=== PATIENT | male | born 2000 | race Caucasian/White ===

== ENCOUNTER 2020-05-14 20:57 | Observation (INO) ==
[2020-05-14] MEDS ORDERED: ONDANSETRON INJ 2 MG/ML 2 ML VIAL IV STA (21:15)
[2020-05-14] MEDS ORDERED: SODIUM CHLORIDE 0.9% 1000ML 1,000 ML IV SCH (21:15)
[2020-05-14 21:46] LABS: Basophils # (auto) 0.05 K/uL (0-0.2); Basophils % (auto) 0.4 %; Eosinophils % (auto) 0.7 %; Hematocrit (blood only) 44.7 % (42-52); Hemoglobin 15.2 g/dL (14.0-18.0); Immature Granulocytes # (auto) 0.03 K/uL (0.00-0.02); Immature Granulocytes % (auto) 0.2 %; Lymphocytes # (auto) 3.14 K/uL (1.2-3.4); Lymphocytes % (auto) 22.2 %; Mean Corpuscular Hemoglobin 29.7 pg (25-34); Mean Corpuscular Volume 87.5 fL (80-100); Mean Platelet Volume 10.6 fL (7.4-10.4); Monocytes % (auto) 9.2 %; Neutrophils # (auto) 9.52 K/uL (1.4-6.5); Neutrophils % (auto) 67.3 %; Platelet Count 200 K/uL (130-400); RDW Coefficient of Variation 12.4 % (11.5-14.5); RDW Standard Deviation 40.2 fL (36.4-46.3); Red Blood Count 5.11 M/uL (4.7-6.1); White Blood Count 14.14 K/uL (4.8-10.8)
[2020-05-14 22:17] LABS: Albumin Level 4.3 gm/dl (3.4-5.0); BUN Creatinine Ratio 12.1 (10-20); Calcium 9.5 mg/dl (8.5-10.1); Est GFR (African American) 115.2; Est GFR (Non-African American) 99.4; Globulin 4.1 gm/dl (2.5-4.0); Potassium 3.6 mmol/L (3.5-5.1); Total Protein 8.5 gm/dl (6.4-8.2)
--- NOTE | 2020-05-14 22:18 | Emergency Department Note ---
History of Present Illness General Chief Complaint: Abdominal Pain Stated Complaint: ABD PAIN Time Seen by Provider: 05/14/20 21:03 Source: patient Mode of arrival: ambulatory Limitations: no limitations History of Present Illness Provider Complaint: abdominal pain Onset (ago): 1 day(s) Pain Consistency: constant Location: periumbilical Radiation: RLQ Migration to: RLQ Severity: moderate Maximum Pain Intensity: 7 Current Pain Intensity: 7 Quality: + stabbing and + sharp Relieved By: + nothing Exacerbated By: + eating, + movement and + other (ambulation) Associated Symptoms: + nausea, + vomiting and + anorexia Treatments prior to arrival: antacids This 19-year-old male patient with no significant past medical history presents to the emergency department today for evaluation of abdominal pain. The patient states at 10 PM last evening, he developed periumbilical abdominal pain which has been progressively worsening overnight. He did have an episode of nausea and vomiting at 3 or 4 AM and was having difficulty sleeping due to the pain overnight. He has been taking Tums and Pepto-Bismol without relief. He denies any associated fever or diarrhea. Last bowel movement was earlier today and was normal. The patient states his pain has progressively worsened and migrated to the right lower quadrant and is worse with walking or coughing. He denies a history of fever. He denies any diarrhea or constipation. Patient last ate cereal 1 hour prior to arrival, but has had a decreased appetite throughout the day. He denies any hematemesis or hematochezia. No melena. Patient denies any history of similar symptoms. Home Medications Home Medications Medication Instructions Recorded Confirmed Type calcium carbonate [Tums] 400 mg PO BID PRN 05/14/20 05/14/20 History Allergies Allergy/AdvReac Type Severity Reaction Status Date / Time peanut Allergy Severe Anaphylaxis Verified 05/14/20 22:18 tree nut Allergy Severe Anaphylaxis Verified 05/14/20 22:18 Past Med/Surg History Medical History No pertinent past medical history Social History Smoking Status: Never smoker Feels Safe at Home: Yes Review of Systems A total of 10 systems reviewed and were otherwise negative Physical Exam Vital Signs: Vital Signs - 24 hr 05/14/20 20:58 05/14/20 22:14 Temperature 37.1 C Temperature Source Oral Pulse Rate 107 H Pulse Rate [Finger ] 92 H Pulse Rhythm [Fing er] Regular Respiratory Rate 18 20 Respiratory Effort / Characteristics Non-Labored Respiratory Depth Normal Blood Pressure 151/91 H Blood Pressure [Le ft Arm] 119/91 Blood Pressure Sarah n 111 Blood Pressure Sarah n [Left Arm] 100 Blood Pressure Pos ition Sitting Pulse Oximetry 97 100 Oxygen Delivery Me thod Room Air Room Air Sepsis Recent Feve r Within 48 Hours No Sepsis New/Unexpla ined Change in Men priyanka Status No Sepsis Action Take n by Nursing No Action Required Physical Exam: VITALS: Vitals are noted on the nurse's note and reviewed by myself. Patient is hypertensive and tachycardic. He is afebrile. O2 saturation 97% GENERAL: This is a 19-year-old white male, in no acute distress, nondiaphoretic, well-developed well-nourished. SKIN: The skin was without rashes, erythema, edema, or bruising. There is no tenting of the skin. Capillary refill less than 2 seconds. HEAD: Normocephalic atraumatic. EYES: Conjunctivae without injection, sclerae without icterus. NECK: Supple without nuchal rigidity. No lymphadenopathy. HEART: Regular rate and rhythm without murmurs gallops or rubs. LUNGS: Clear to auscultation bilaterally without wheezes, rales or rhonchi. No retractions or accessory muscle use. ABDOMEN: Positive bowel sounds x 4. Normal tympanic percussion. Periumbilical right lower quadrant tenderness to palpation. Positive rebound tenderness. No guarding. Abdomen otherwise soft, without masses or organomegaly. Tena sign negative. No CVA tenderness bilaterally. MUSCULOSKELETAL: No muscle atrophy, erythema, or edema noted. Full range of motion without joint tenderness in all extremities. No tenderness to palpation. Normal gait. Strength 5/5 throughout. NEURO: Patient was alert and oriented to person place and time. No focal neurological deficits. Course Course The patient was seen and evaluated as above. An order was placed for continuous cardiac monitoring. The monitor shows a NS tachycardia at a rate of 107 bpm. IV access obtained, labs drawn. Patient medicated with IV fluids and Zofran. Labs reviewed by myself. The patient was signed out at shift change to Praful Lind PA-C pending CT imaging and finalization of labs. Please see his dictation regarding final disposition and plan. Administered Medications Discontinued Medications Sodium Chloride (Nss 1000ml) 1,000 mls @ 999 mls/hr IV .[id number] YOUNG Stop: 05/14/20 22:15 Last Admin: 05/14/20 21:33 Dose: 999 mls/hr Documented by: [id number] Ondansetron HCl (Ondansetron Inj 2 Mg/Ml 2 Ml Vial) 4 mg IV NOW STA Stop: 05/14/20 21:16 Last Admin: 05/14/20 21:30 Dose: 4 mg Documented by: [id number] Medical Decision Making Differential Diagnosis + peptic ulcer disease, + biliary pathology, + UTI, + obstruction, + mesenteric ischemia, + aortic pathology, + infections, + inflammatory bowel disease, + renal colic, + torsion (male), + epididymitis (male), + abdominal pain, + appendicitis, + calculus of kidney, + constipation, + diverticulitis, + gastroenteritis, + pancreatitis and + small bowel obstruction Medical Records Attestation: I reviewed the patient's medical records. Home Medications Current Medication List: was personally reviewed by me Laboratory Data Attestation: I reviewed the patient's lab results. Leukocytosis of 14,000. No anemia or thrombocytopenia. Renal, hepatic function and electrolytes without significant abnormality. Lipase 100. Result diagrams: 05/14/20 21:25 05/14/20 21:25 Lab Results 05/14/20 05/14/20 Range/Units 21:25 21:25 WBC 14.14 H (4.8-10.8) K/uL RBC 5.11 (4.7-6.1) M/uL Hgb 15.2 (14.0-18.0) g/dL Hct 44.7 (42-52) % MCV 87.5 (80-100) fL MCH 29.7 (25-34) pg MCHC 34.0 (32-36) g/dL RDW Std Deviation 40.2 (36.4-46.3) fL RDW Coeff of Camilo 12.4 (11.5-14.5) % Plt Count 200 (130-400) K/uL MPV 10.6 H (7.4-10.4) fL Immature Gran % (Auto) 0.2 % Neut % (Auto) 67.3 % Lymph % (Auto) 22.2 % [place] % (Auto) 9.2 % Eos % (Auto) 0.7 % Baso % (Auto) 0.4 % Neut # (Auto) 9.52 H (1.4-6.5) K/uL Lymph # (Auto) 3.14 (1.2-3.4) K/uL [place] # (Auto) 1.30 H (0.11-0.59) K/uL Eos # (Auto) 0.10 (0-0.5) K/uL Baso # (Auto) 0.05 (0-0.2) K/uL Immature Gran # (Auto) 0.03 H (0.00-0.02) K/uL Sodium 138 (136-145) mmol/L Potassium 3.6 (3.5-5.1) mmol/L Chloride 104 (98-107) mmol/L Carbon Dioxide 29 (21-32) mmol/L Anion Gap 5.0 (3-11) BUN 13 (7-18) mg/dl Creatinine 1.07 (0.6-1.4) mg/dl Est Cr Clr Drug Dosing 103.0 ml/min Est GFR ( Amer) 115.2 Est GFR (Non-Af Amer) 99.4 BUN/Creatinine Ratio 12.1 (10-20) Glucose 113 H (70-99) mg/dl Calcium 9.5 (8.5-10.1) mg/dl Total Bilirubin 1.0 (0.2-1) mg/dl AST 14 L (15-37) U/L ALT 18 (12-78) U/L Alkaline Phosphatase 91 (45-117) U/L Total Protein 8.5 H (6.4-8.2) gm/dl Albumin 4.3 (3.4-5.0) gm/dl Globulin 4.1 H (2.5-4.0) gm/dl Albumin/Globulin Ratio 1.0 (0.9-2) Lipase 100 (73-393) U/L Specimen Hemolysis Blood Pressure Blood Pressure Findings: Elevated blood pressure Blood Pressure Disposition: elevated BP felt to be situational MDM Narrative This 19 year old male patient presents to the ED for evaluation of RLQ abdominal pain. Symptoms began last evening and are associated with nausea, vomiting, anorexia, and increased pain with walking and coughing. Patient is afebrile. He is tachycardic on initial evaluation, but very anxious regarding lab work. He does have a leukocytosis. Primary concern is for acute appendicitis. Patient is awaiting CT abdomen/pelvis at shift change, and will be signed out to Praful Lind PA-C pending reevaluation and results of CT imaging. Please see his dictation regarding final disposition and plan of this patient. The chart was completed utilizing [employer] Speech voice recognition software. Grammatical errors, random word insertions, pronoun errors, and incomplete sentences are an occasional consequence of this system due to software limitations, ambient noise, and hardware issues. Any formal questions or concerns about the content, text, or information contained within the body of this dictation should be directly addressed to the provider for clarification. Impression & Plan Abdominal pain Discharge Plan Visit Data Chief Complaint: Abdominal Pain Stated Complaint: ABD PAIN ED Provider: Je Toth ED Midlevel Provider: Sri Dumont Discharge Problem: Abdominal pain Patient Disposition: Still a Patient Forms Stand Alone Forms: [facility], [facility], [facility] Emergency Department, Important Visit Information Prescriptions Prescriptions: No Action calcium carbonate [Tums] 200 mg calcium (500 mg) Tablet,Chewable 400 mg PO BID PRN (Reason: abd discomfort) RF: 0 Referrals Referrals: PCP,NO [Primary Care Provider] -
[2020-05-14 22:38] LABS: Appearance Urine Clear (Clear); Bilirubin Urine Negative (Negative); Blood Urine Negative (Negative); Color Urine Yellow; Glucose Urine UA Negative (Negative); Ketones Urine Negative (Negative); Leukocyte Esterase Urine Negative (Negative); Nitrite Urine Negative (Negative); Protein Urine Negative (Negative); Specific Gravity Urine 1.011 (1.000-1.030); Urobilinogen Urine Negative (Negative)
--- NOTE | 2020-05-14 23:10 | Emergency Department Note ---
Impression & Plan Abdominal pain ED Provider Note Patient care was assumed from Sri Dumont PA-C, at the time of shift change. Please see Tim's dictation for full history of present illness and emergency department course prior to my assumption of care. In short, the patient has right lower quadrant abdominal pain. He does have an elevated white blood cell count. At the time of shift change we are awaiting CT scan with IV and oral contrast. CT Scan was reviewed by myself and radiology as follows: Preliminary Findings Only See Final Report For Complete Findings CT ABDOMEN & PELVIS With Contrast: Uncomplicated acute appendicitis. Thick-walled, inflamed appendix measures 9 mm in diameter. No free air or abscess. Liver, gallbladder, spleen, pancreas, adrenal glands are unremarkable. No hydronephrosis. Right kidney cyst. No bowel obstruction. Urinary bladder and prostate are normal. No acute osseous findings. The patient appears to have acute appendicitis on CT. These findings were discussed with the patient. I did discuss the case with the on-call surgical team, Agustín Rosas PA-C, who did evaluate the patient here in the department. The patient did have a rapid Covid performed, which was negative. He was given Mefoxin. Please see the surgical team's dictation for further patient course, plan, and disposition. Past Med/Surg History Medical History No pertinent past medical history Social History Smoking Status: Never smoker Do You Dip or Chew Tobacco: No; Hx Alcohol Use: No Hx Substance Use: No Preferred Language: Setswana Communication Ability: Effective Beliefs That Will Affect Care: None Current Living Situation: Alone Feels Safe at Home: Yes Assistive Devices: None Allergies Allergies Allergy/AdvReac Type Severity Reaction Status Date / Time peanut Allergy Severe Anaphylaxis Verified 05/14/20 22:18 tree nut Allergy Severe Anaphylaxis Verified 05/14/20 22:18 Home Meds Home Medications Medication Instructions Recorded Confirmed calcium carbonate [Tums] 400 mg PO BID PRN 05/14/20 05/14/20 Results & Data (ED) Vital Signs Vital Signs - 24 hr 05/14/20 20:58 05/14/20 22:14 05/14/20 23:00 Temperature 37.1 C Temperature Source Oral Pulse Rate 107 H Pulse Rate [Finger] 92 H 79 Pulse Rhythm [Finger] Regular Respiratory Rate 18 20 18 Respiratory Effort / Characteristics Non-Labored Respiratory Depth Normal Blood Pressure 151/91 H Blood Pressure [Left Arm] 119/91 125/76 Blood Pressure Mean 111 Blood Pressure Mean [Left Arm] 100 92 Blood Pressure Position Sitting Pulse Oximetry 97 100 98 Oxygen Delivery Method Room Air Room Air Room Air Sepsis Recent Fever Within 48 Hours No Sepsis New/Unexplained Change in Mental Status No Sepsis Action Taken by Nursing No Action Required Laboratory Data Result diagrams: 05/14/20 21:25 05/14/20 21:25 Lab Results 05/14/20 05/14/20 05/14/20 Range/Units 21:25 21:25 21:25 WBC 14.14 H (4.8-10.8) K/uL RBC 5.11 (4.7-6.1) M/uL Hgb 15.2 (14.0-18.0) g/dL Hct 44.7 (42-52) % MCV 87.5 (80-100) fL MCH 29.7 (25-34) pg MCHC 34.0 (32-36) g/dL RDW Std Deviation 40.2 (36.4-46.3) fL RDW Coeff of Camilo 12.4 (11.5-14.5) % Plt Count 200 (130-400) K/uL MPV 10.6 H (7.4-10.4) fL Immature Gran % (Auto) 0.2 % Neut % (Auto) 67.3 % Lymph % (Auto) 22.2 % [place] % (Auto) 9.2 % Eos % (Auto) 0.7 % Baso % (Auto) 0.4 % Neut # (Auto) 9.52 H (1.4-6.5) K/uL Lymph # (Auto) 3.14 (1.2-3.4) K/uL [place] # (Auto) 1.30 H (0.11-0.59) K/uL Eos # (Auto) 0.10 (0-0.5) K/uL Baso # (Auto) 0.05 (0-0.2) K/uL Immature Gran # (Auto) 0.03 H (0.00-0.02) K/uL Sodium 138 (136-145) mmol/L Potassium 3.6 (3.5-5.1) mmol/L Chloride 104 (98-107) mmol/L Carbon Dioxide 29 (21-32) mmol/L Anion Gap 5.0 (3-11) BUN 13 (7-18) mg/dl Creatinine 1.07 (0.6-1.4) mg/dl Est Cr Clr Drug Dosing 103.0 ml/min Est GFR ( Amer) 115.2 Est GFR (Non-Af Amer) 99.4 BUN/Creatinine Ratio 12.1 (10-20) Glucose 113 H (70-99) mg/dl Calcium 9.5 (8.5-10.1) mg/dl Total Bilirubin 1.0 (0.2-1) mg/dl AST 14 L (15-37) U/L ALT 18 (12-78) U/L Alkaline Phosphatase 91 (45-117) U/L Total Protein 8.5 H (6.4-8.2) gm/dl Albumin 4.3 (3.4-5.0) gm/dl Globulin 4.1 H (2.5-4.0) gm/dl Albumin/Globulin Ratio 1.0 (0.9-2) Lipase 100 (73-393) U/L Specimen Hemolysis Urine Color Yellow Urine Appearance Clear (Clear) Urine pH 7.0 (4.5-7.5) Ur Specific [place] 1.011 (1.000-1.030) Urine Protein Negative (Negative) Urine Glucose (UA) Negative (Negative) Urine Ketones Negative (Negative) Urine Blood Negative (Negative) Urine Nitrite Negative (Negative) Urine Bilirubin Negative (Negative) Urine Urobilinogen Negative (Negative) Ur Leukocyte Esterase Negative (Negative) COVID-19 Eval Order SARS-CoV-2, RNA, NAAT (NEGATIVE) 05/15/20 05/15/20 Range/Units 00:25 00:25 WBC (4.8-10.8) K/uL RBC (4.7-6.1) M/uL Hgb (14.0-18.0) g/dL Hct (42-52) % MCV (80-100) fL MCH (25-34) pg MCHC (32-36) g/dL RDW Std Deviation (36.4-46.3) fL RDW Coeff of Camilo (11.5-14.5) % Plt Count (130-400) K/uL MPV (7.4-10.4) fL Immature Gran % (Auto) % Neut % (Auto) % Lymph % (Auto) % [place] % (Auto) % Eos % (Auto) % Baso % (Auto) % Neut # (Auto) (1.4-6.5) K/uL Lymph # (Auto) (1.2-3.4) K/uL [place] # (Auto) (0.11-0.59) K/uL Eos # (Auto) (0-0.5) K/uL Baso # (Auto) (0-0.2) K/uL Immature Gran # (Auto) (0.00-0.02) K/uL Sodium (136-145) mmol/L Potassium (3.5-5.1) mmol/L Chloride (98-107) mmol/L Carbon Dioxide (21-32) mmol/L Anion Gap (3-11) BUN (7-18) mg/dl Creatinine (0.6-1.4) mg/dl Est Cr Clr Drug Dosing ml/min Est GFR ( Amer) Est GFR (Non-Af Amer) BUN/Creatinine Ratio (10-20) Glucose (70-99) mg/dl Calcium (8.5-10.1) mg/dl Total Bilirubin (0.2-1) mg/dl AST (15-37) U/L ALT (12-78) U/L Alkaline Phosphatase (45-117) U/L Total Protein (6.4-8.2) gm/dl Albumin (3.4-5.0) gm/dl Globulin (2.5-4.0) gm/dl Albumin/Globulin Ratio (0.9-2) Lipase (73-393) U/L Specimen Hemolysis Urine Color Urine Appearance (Clear) Urine pH (4.5-7.5) Ur Specific [place] (1.000-1.030) Urine Protein (Negative) Urine Glucose (UA) (Negative) Urine Ketones (Negative) Urine Blood (Negative) Urine Nitrite (Negative) Urine Bilirubin (Negative) Urine Urobilinogen (Negative) Ur Leukocyte Esterase (Negative) COVID-19 Eval [facility] SARS-CoV-2, RNA, NAAT NEGATIVE (NEGATIVE) Administered Medications Lactated Ringer's (Lr) 1,000 mls @ 80 mls/hr IV .[id number] YOUNG Stop: 06/14/20 02:07 Last Admin: 05/15/20 02:27 Dose: 80 mls/hr Documented by: [id number] Discontinued Medications Sodium Chloride (Nss 1000ml) 1,000 mls @ 999 mls/hr IV .[id number] YOUNG Stop: 05/14/20 22:15 Last Infusion: 05/14/20 22:59 Dose: 0 mls/hr Documented by: [id number] Admin: 05/14/20 21:33 Dose: 999 mls/hr Documented by: [id number] Cefoxitin Sodium (Mefoxin) 2,000 mg in 60 mls @ 100 mls/hr IV NOW STA Stop: 05/15/20 00:55 Last Infusion: 05/15/20 01:07 Dose: 0 mls/hr Documented by: [id number] Admin: 05/15/20 00:31 Dose: 100 mls/hr Documented by: [id number] Ioversol (Ioversol 100ml) 100 ml IV ONCE ONE Stop: 05/15/20 00:08 Last Admin: 05/15/20 00:08 Dose: 93 ml Documented by: [id number] Ondansetron HCl (Ondansetron Inj 2 Mg/Ml 2 Ml Vial) 4 mg IV NOW STA Stop: 05/14/20 21:16 Last Admin: 05/14/20 21:30 Dose: 4 mg Documented by: [id number] Discharge Plan Visit Data Chief Complaint: Abdominal Pain Stated Complaint: ABD PAIN ED Provider: Je Toth ED Midlevel Provider: Praful Lind Discharge Problem: Abdominal pain Patient Disposition: Admitted As Inpatient Discharge Instructions Interventions: ED Discharge Assessment Last Done: 05/15/20 01:30 Discharge Problem: Abdominal pain Qualifiers: Abdominal location: right lower quadrant Qualified Code(s): R10.31 - Right lower quadrant pain
[2020-05-15] MEDS ORDERED: IOVERSOL 100ml IV ONE (00:07)
[2020-05-15] MEDS ORDERED: cefOXitin 2,000 MG/60 ML BAG IV STA (00:20)
--- NOTE | 2020-05-15 00:51 | History & Physical Report ---
Date of Service May 15, 2020 Assessment & Plan (1) Acute appendicitis: -will admit pt. 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 He had an episode of N/V. The pain has since shifted to the RLQ. He denies palliative factors. The pain is worse with palpation of the abdomen. He denies fevers. He lives alone in an apartment and to the best of his knowledge has no COVID-19 exposure. He has no cough, SOB, loss of sense of smell or taste. In the ED, CT scan showed acute appendicitis. WBC was 14k and he was afebrile. He was in no distress at the time of my exam. Allergies Allergy/AdvReac Type Severity Reaction Status Date / Time peanut Allergy Severe Anaphylaxis Verified 05/14/20 22:18 tree nut Allergy Severe Anaphylaxis Verified 05/14/20 22:18 Home Medications Home Medications Medication Instructions Recorded Confirmed Type calcium carbonate [Tums] 400 mg PO BID PRN 05/14/20 05/14/20 History Past Med/Surg History Medical History No pertinent past medical history Social History Smoking Status: Never smoker Do You Dip or Chew Tobacco: No; Hx Alcohol Use: No Hx Substance Use: No Preferred Language: Japanese Communication Ability: Effective Beliefs That Will Affect Care: None Current Living Situation: Alone Feels Safe at Home: Yes Assistive Devices: None Review of Systems Constitutional: no fever and no body aches Eyes: no diplopia Ear, Nose, Mouth, Throat: no ear pain Respiratory: no cough and no dyspnea Cardiovascular: no chest pain Gastrointestinal: + abdominal pain, + nausea and + vomiting Genitourinary: no dysuria Musculoskeletal: no back pain Integumentary: no rash Neurologic: no localized weakness Physical Exam Constitutional: well developed and well nourished; no acute distress Eyes: no conjunctival abnormality ENMT: Ears: no hearing impairment Neck: trachea midline Respiratory: normal respiratory effort, lungs clear to auscultation Cardiovascular: Rate/Rhythm: regular rate and regular rhythm Gastrointestinal (Abdomen): soft without distention, pain with palpation in RLQ with minor rebound tenderness Musculoskeletal: no calf pain Skin: no rashes, warm and dry Neurologic: moves all extremities Psychiatric: A+Ox3, euthymic affect Results & Data Results & Data ([facility]) Vital Signs (Past 12 Hours) Vital Signs Temp Pulse Pulse Resp BP BP Pulse Ox 05/14/20 23:00 79 18 125/76 98 05/14/20 22:14 92 H 20 119/91 100 05/14/20 20:58 37.1 C 107 H 18 151/91 H 97 Supervising Physician Co-Signing Physician Notes As per Agustín ALCAZAR The patient is resting comfortably using his iPhone Exam localized tenderness to right lower quadrant just inferior to McBurney's point rest of the abdomen is negative Lab was reviewed CAT scan was seen we will proceed with laparoscopic appendectomy possible open Risk and complication of the procedure were explained to the patient and talked to his mother by phone and would like to proceed accordingly Permit is signed PG Care Time/CCT Total # of Minutes Spent Total Time Spent with Patient: Total time spent is greater than 50% in coordination of care (as documented) at patient's floor/unit and/or counseling patient: Coding Level of Care Code 97193 OBS Care - Level 3 Diagnoses Acute appendicitis K35.80
[2020-05-15] MEDS ORDERED: ACETAMINOPHEN 1,000 MG/100 ML VIAL IV PRN (02:08)
[2020-05-15] MEDS ORDERED: MoRPHine SULFATE 2 MG/ML CARP IV PRN ×2 (02:08→07:51)
[2020-05-15] MEDS ORDERED: ONDANSETRON INJ 2 MG/ML 2 ML VIAL IV PRN ×2 (02:08→05:12)
[2020-05-15] MEDS: LACTATED RINGER'S 1,000 ML IV SCH ×2 (02:27→07:53)
[2020-05-15] MEDS ORDERED: INFLUENZA VIRUS QUAD VACCINE 0.5 ML SYR IM ONE (02:29)
[2020-05-15] MEDS ORDERED: INFLUENZA ADMINISTRATION CHARGE ONE (02:29)
[2020-05-15] MEDS ORDERED: LIDOCAINE/EPINEPHRINE 1% 20 ML VIAL ONE (05:09)
[2020-05-15] MEDS ORDERED: ePHEDrine sulfate 50 MG/ML AMP IV PRN (05:12)
[2020-05-15] MEDS ORDERED: PHENYLEPHRINE 100MCG/ML 5ML SYR IV PRN (05:12)
[2020-05-15] MEDS ORDERED: fentaNYL citrate 100 MCG/2 ML VIAL IV PRN (05:12)
[2020-05-15] MEDS ORDERED: MEPERIDINE HCL 25 MG/ML CARP/VIAL IV PRN (05:12)
[2020-05-15] MEDS ORDERED: LABETALOL HCL IV 5 MG/ML 20ML IV PRN (05:12)
[2020-05-15] MEDS ORDERED: HYDROmorphone INJ 1 MG/ML SYRINGE IV PRN (05:12)
[2020-05-15] MEDS ORDERED: ATROPINE SULFATE 0.1 MG/ML 10ML SYR IV PRN (05:12)
--- NOTE | 2020-05-15 05:24 | Anesthesiology Consultation ---
Date of Service May 15, 2020 Assessment & Plan (1) Encounter for pre-operative examination: Chart Review Chart Review: Acceptable Risk for Surgery and Patient NOT seen in Pre Admission Testing Consults Requested none History Surgery Operation Date: 05/15/20 05:30 Proposed Procedures p Laparoscopic Appendectomy - Bhaskar Kohli MD Height/Weight Height: 5 ft 10 in Weight: 66.5 kg Allergies Allergy/AdvReac Type Severity Reaction Status Date / Time peanut Allergy Severe Anaphylaxis Verified 05/14/20 22:18 tree nut Allergy Severe Anaphylaxis Verified 05/14/20 22:18 Medications Home Medications Medication Instructions Recorded Confirmed Last Taken calcium carbonate [Tums] 400 mg PO BID PRN 05/14/20 05/14/20 Unknown Active Medications Generic Name Dose Route Start Last Admin Trade Name Freq PRN Reason Stop Dose Admin Lactated Ringer's 1,000 mls @ 80 mls/hr 05/15/20 02:08 05/15/20 02:27 Lr IV 06/14/20 02:07 80 mls/hr .[id number] YOUNG Administration NPO Date Last Intake of Fluids: 05/14/20 Time Last Intake of Fluids: 23:59 Last Intake of Fluids Comment: contrast Date Last Intake of Solids: 05/14/20 Time Last Intake of Solids: 23:59 Past Medical History Medical History No pertinent past medical history Social History Smoking Status: Never smoker Do You Dip or Chew Tobacco: No Hx Alcohol Use: No Hx Substance Use: No Physical Exam Vital Signs Last Vital Signs Temp 37.6 C H 05/15/20 02:24 Pulse 75 05/15/20 02:24 Resp 16 05/15/20 02:24 BP 121/71 05/15/20 02:24 Pulse Ox 96 05/15/20 02:24 Testing Laboratory Results 05/14/20 21:25 05/14/20 21:25 Urine Color Yellow 05/14/20 21:25 Urine Appearance Clear (Clear) 05/14/20 21:25 Urine pH 7.0 (4.5-7.5) 05/14/20 21:25 Ur Specific [place] 1.011 (1.000-1.030) 05/14/20 21:25 Urine Protein Negative (Negative) 05/14/20 21:25 Urine Glucose (UA) Negative (Negative) 05/14/20 21:25 Urine Ketones Negative (Negative) 05/14/20 21:25 Urine Nitrite Negative (Negative) 05/14/20 21:25 Ur Leukocyte Esterase Negative (Negative) 05/14/20 21:25
[2020-05-15] MEDS ORDERED: MIDAZOLAM HCL 1 MG/ML 2ML VIAL ONE (05:31)
[2020-05-15] MEDS ORDERED: fentaNYL citrate 100 MCG/2 ML VIAL ONE (05:31)
[2020-05-15] MEDS: cefOXitin 2,000 MG in DEXTROSE 5% 50 ML IV SCH ×2 (05:43→13:09)
[2020-05-15] MEDS ORDERED: DEXAMETHASONE SOD INJ 4 MG/ML VIAL ONE (05:59)
[2020-05-15] MEDS ORDERED: PROPOFOL IV EMULSION 10 MG/ML 20 ML VIAL IV ONE (05:59)
[2020-05-15] MEDS ORDERED: ROCURONIUM BROMIDE 10 MG/ML 5 ML VIAL IV ONE ×4 (06:00→06:03)
[2020-05-15] MEDS ORDERED: LIDOCAINE HCL 2% 2 ML VIAL/AMP(20MG/ML) INFIL ONE (06:00)
[2020-05-15] MEDS ORDERED: SUCCINYLCHOLINE CHLORIDE 20 MG/ML 10 ML VIAL IV ONE (06:00)
[2020-05-15] MEDS ORDERED: ONDANSETRON INJ 2 MG/ML 2 ML VIAL ONE ×2 (06:00)
[2020-05-15] MEDS ORDERED: GLYCOPYRROLATE 0.2 MG/ML VIAL ONE (06:01)
[2020-05-15] MEDS ORDERED: NEOSTIGMINE METHYLSULFATE 5 MG/5 ML SYR ONE (06:01)
--- NOTE | 2020-05-15 06:42 | Post Operative Brief Note ---
PG Immediate Post Op with CF Date of Surgery May 15, 2020 Pre & Post Diagnosis Operation Date: 05/15/20 05:30 Pre-Op Diagnosis: Acute Appendix Post-Op Diagnosis: Acute Appendix I identified the patient and participated in the time-out.: Yes Procedure Operation Date: 05/15/20 05:30 Actual Procedures p Laparoscopic Appendectomy - Bhaskar Kohli MD Surgeon Bhaskar Kohli MD Nut Sifter nathe Estimated Blood Loss 5 Findings Consistent with Post-Op Diagnosis Specimens Specimen Description: A. Appendix
--- NOTE | 2020-05-15 06:52 | Operative Report ---
PG Post Operative Report Pre & Post Diagnosis Operation Date: 05/15/20 05:30 Pre-Op Diagnosis: Acute Appendix Post-Op Diagnosis: Acute Appendix I identified the patient and participated in the time-out.: Yes Procedure Operation Date: 05/15/20 05:30 Actual Procedures p Laparoscopic Appendectomy - Bhaskar Kohli MD The patient was brought into the operating theater supine position general trach anesthesia timeout was had for Covid protocol the abdomen is then prepped Betadine solution properly draped antibiotics had been on board patient i dentified timeout was had and incision was made approximately quarter of an inch long supraumbilically Veress needle followed followed by CO2 followed by 5 mm trocar point of interest back to no injury identified there was a little bit of blood along the omentum that eventually found that the trocar and gone through slightly on the falciform ligament but the bleeding eventually stopped and regularization we placed a 5 mm right upper quadrant port with preemptive analgesic camera was placed in that area we visualize the umbilical site and there was no active bleeding identified at this point we converted the 5 mm supraumbilical port by enlarging the incision removing the 5 mm using a Dede clamp to open up the fascia then on direct visualization placed a 11 mm trocar and a 5 mm trocar was then placed in the left lower quadrant direct visualization with preemptive local analgesic the camera was placed in that area and were able to elevate the cecum identify the appendix easily which was dilated inflamed nonruptured no fibrinous exudate but the tip was covered with slightly omentum which we peeled off without any difficulty and we created a window between the mesoappendix and the appendix at the base of the cecum and were able to fire a blue load stapler without any difficulty the staple line was intact no bleeding the mesoappendix was rather small as far as diameter therefore we placed another 5 mm load and freed the appendix from the mesoappendix the appendix was then placed in an Endopouch and taken out through the umbilical port 11 mm port was then replaced we identified that there was a slight bleeder in the mesoappendix at the tip we can actually see the pulsation transmitted in the fatty tissue therefore at this point I placed 210 mm clips in an area that I thought may have been the site of a little oozing and indeed it was we checked the area again multiple times there was no bleeding suction and this point individual trochars removed left first remove the left lower quadrant then the middle umbilical area the night last the 5 mm right upper quadrant trocar fascial stitch or 2-0 Vicryl [id number] was used to fashion around the umbilical area and 4-0 Monocryl subcuticular Steri-Strips applied procedure was tolerated well by the patient estimated blood loss 5 cc Surgeon Bhaskar Kohli MD [employer] Estimated Blood Loss 5 Findings Consistent with Post-Op Diagnosis Specimens appendix Description of Procedure harry I attest to the content of the Intraoperative Record and any orders documented therein. Any exceptions are noted below.
--- NOTE | 2020-05-15 07:07 | Anesthesiology Progress Note ---
Date of Service May 15, 2020 Anesthesia Post Procedure Vital Signs Vital Signs: Temp Pulse Pulse Resp BP BP Pulse Ox 05/15/20 06:53 36.6 C 72 21 125/66 100 05/15/20 02:24 37.6 C H 75 16 121/71 96 05/14/20 23:00 79 18 125/76 98 05/14/20 22:14 92 H 20 119/91 100 05/14/20 20:58 37.1 C 107 H 18 151/91 H 97 Pain Intensity Lower Abdomen: Pain Intensity: 2 Transfer of Care Handoff Completed per policy Notes Mental Status: alert / awake / arousable Patient Amnestic to Procedure: Yes Nausea / Vomiting: adequately controlled Pain: adequately controlled Airway Patency, RR, SpO2: stable & adequate BP & HR: stable & adequate Hydration State: stable & adequate Anesthetic Complications: no major complications apparent and Pt Satisfied with anesthetic care
[2020-05-15] MEDS ORDERED: MoRPHine SULFATE 4 MG/ML 1 ML CARP\\VIAL IV PRN (07:51)
--- NOTE | 2020-05-15 08:49 | Discharge Summary ---
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 He had an episode of N/V. The pain has since shifted to the RLQ. He denies palliative factors. The pain is worse with palpation of the abdomen. He denies fevers. He lives alone in an apartment and to the best of his knowledge has no COVID-19 exposure. He has no cough, SOB, loss of sense of smell or taste. In the ED, CT scan showed acute appendicitis. WBC was 14k and he was afebrile. He was in no distress at the time of my exam. Principal Diagnosis Acute appendicitis Discharge Exam Gastrointestinal (Abdomen) Inspection/Auscultation: + abdominal surgical incision (dry) Percussion/Palpation: abdomen soft Discharge Data Allergies Allergy/AdvReac Type Severity Reaction Status Date / Time peanut Allergy Severe Anaphylaxis Verified 05/14/20 22:18 tree nut Allergy Severe Anaphylaxis Verified 05/14/20 22:18 Consultations 05/15/20 00:58 ED Decision to Admit Stat Procedures Performed Operation Date: 05/15/20 05:30 Actual Procedures p Laparoscopic Appendectomy - Bhaskar Kohli MD Ordered Studies 05/14/20 21:15 CT abd pelvis oral and IV con Urgent Hospital Course (1) Acute appendicitis: 19 y/o male presented to the ER with abdominal pain. White count was 14,[address] was consistent with acute appendicitis. He was admitted to the surgical service overnight and taken to the operating room for laparoscopic appendectomy in the morning. He was able to advance diet and tolerate oral analgesics during the day and was stable for discharge home. Total Time Total Time Spent Total Time Spent (In Minutes): 10 Discharge Plan Discharge Items Patient Disposition: Home - Self-Care Reason For Visit: APPY Discharge Diagnosis: laparoscopic appendectomy Activity: As commented below Lifting: No more than 10 pounds Bathing Comment: can shower starting tomorrow Driving/Machine Use: Resume 3 days after discharge Non-emergency contact: Surgeon Call non-emergency contact if: you have any medication questions, your pain is not controlled, your temperature is above 101.5 and your wound has increased redness Follow-up/Referrals: Bhaskar Kohli MD [Surgeon] - (Call the office if you have any questions or concerns, usual follow-up is 1-2 weeks after surgery) PCP,NO [Primary Care Provider] - Diet: Regular Addtl Attending Provider Instructions: Pending Studies at Discharge: No Stand-Alone Forms: My [facility] [employer], Smoking Cessation Medications and DC Order Prescriptions: New oxycodone-acetaminophen [Percocet] 5-325 mg tablet 1 - 2 tab PO Q4H PRN (Reason: pain, initial therapy, max 6 daily) Qty: 15 RF: 0 Continued calcium carbonate [Tums] 200 mg calcium (500 mg) Tablet,Chewable 400 mg PO BID PRN (Reason: abd discomfort) RF: 0 Discharge Orders: Discharge Order (Routine); Ordered 05/15/20 Ordered By: Richard Martinez Jr Admission Data Admit Date/Time: 05/15/20 01:03 Attending Provider: Bhaskar Kohli Admit Provider: Bhaskar Kohli Primary Care Provider: PCP,NO Other Providers: Bhaskar Kohli Coding Level of Care Code D/C Day Management <30 mins Diagnoses Acute appendicitis K35.80
--- NOTE | 2020-05-15 10:23 | CT Scan Report ---
CT abd pelvis oral and IV con CLINICAL HISTORY: Right lower quadrant abdominal pain COMPARISON STUDY: None. TECHNIQUE: The patient was scanned following administration of dilute oral contrast, and in a dynamic helical fashion during intravenous administration of 93 cc of Optiray 320. A dose lowering techniqu e was utilized adhering to the principles of ALARA. CT DOSE: 275.63 mGy.cm FINDINGS: Lower chest: The heart is normal in size and configuration, without pericardial effusion. The lung ba ses and pleural spaces are clear. Liver: The contrast-enhanced liver is normal in size, contour, and attenuation. There is no intrahepa tic biliary ductal dilatation. The hepatic veins and portal veins are patent. Gallbladder: Unremarkable. Spleen: Normal in size and attenuation. Pancreas: Unremarkable. Adrenal glands: Unremarkable. Kidneys: There are several small right renal cysts measuring up to 1 cm diameter. There is no hydrone phrosis. Bowel: There are no transition zones indicate bowel obstruction. There is no evidence of acute divert iculitis. There is a dilated thick-walled appendix measuring 11 mm, and containing an appendicolith. There is mild periappendiceal stranding. The findings are indicative of acute appendicitis Peritoneum: There is no intraperitoneal free air or abdominal ascites. There is trace free pelvic flu id Vasculature: The abdominal aorta is normal in course and caliber. Adenopathy: None. Pelvic viscera: The bladder, and pelvic viscera are unremarkable. Skeletal structures: No destructive osseous lesions are seen. IMPRESSION: 1. Acute appendicitis. ACT 112: Negative or not required by law. Electronically signed by: Loi Westbrook M.D. 05/15/2020 8:00 AM
[2020-05-15] MEDS ORDERED: ACETAMINOPHEN 325 MG TAB PO PRN (10:43)
== END 2020-05-15 14:00 | disposition home or self-care (01) ==
LOC: 3W 20:57 → ED 20:57 → 3W 05-15 01:30